=== PATIENT | male | born 1940 | race Caucasian/White ===

== ENCOUNTER 2017-03-08 14:20 | Inpatient (IN) | payer MEDICARE, BC ==
[2017-03-06 21:48] LABS: ASCORBIC ACID (UR NOT ORDER) NEG (NEG); BILIRUBIN, URINE NEGATIVE (NEG); KETONE, URINE NEGATIVE (NEG)
--- NOTE | ~2017-03-08 | HP ---
History And Physical [place] [address] [place]. [address] NAME: CLAU SOARES : 38 STATUS : ADM Edelmira PAT#: [id number] AGE: 76 ADM/REG DATE : 03/08/17 MR#: [id number] REPORT SERV DATE: 03/09/17 DICTATED BY: BENTON JUAN DATE: 03/09/17 REPORT STATUS : Draft TRANSCRIBED BY: MODL DATE: 03/09/17 DATE OF ADMISSION: 03/08/2017 CHIEF COMPLAINT: Altered mental status and weakness. HISTORY OF PRESENT ILLNESS: This is a 76-year-old male, who presents to the emergency room at [facility] with the above-mentioned complaint. History is obtained from the patient and reviewing data available on the [facility] system as well. According to the patient, he had woken up this morning feeling as usual, but a short while later, became a little confused and disoriented. His who was with him waited awhile, but when there was no improvement in his status, she called EMS and the patient was brought to the emergency room here. During this time, she had also noticed that he had some slurred speech. The patient did not know where he was or who he was. In the emergency room, initial workup revealed he had a urinary tract infection, although his dysarthria had resolved by the time he got here. Hospitalist Service is asked to admit him for further evaluation and treatment. At the time of my evaluation, he denied any chest pain or palpitations. He had no orthopnea. He did not have any unusual cough or hemoptysis in the recent past, did not have any night sweats or weight loss. No history of loss of consciousness. No history of fevers, chills, nausea, vomiting, diarrhea, hematemesis, hematochezia, or hematuria in the recent past. No other history of recent travel or exposures other than those mentioned above. PAST MEDICAL HISTORY: Significant for history of spinal stenosis, history of DVT in the past. He also has chronic kidney disease stage 3, essential tremor, and obstructive sleep apnea, noncompliant with therapy. SOCIAL HISTORY: He does not smoke, drink, or use recreational drugs. FAMILY HISTORY: Noncontributory. MEDICATIONS AT HOME: Reviewed by me in the chart today and reordered by me. REVIEW OF SYSTEMS: As in history of present illness. All other systems were reviewed in detail and are quite unremarkable. PHYSICAL EXAMINATION: GENERAL: This is a pleasant 76-year-old, who is alert, awake, oriented to time, place, and person at the time of my evaluation. HEENT: His head was atraumatic, normocephalic. He is alert, awake, oriented to time, place, and person. Pupils are equal, reacting to light and accommodating. External ocular muscles History And Physical [address] [address] NAME: CLAU SOARES : 38 STATUS : ADM Edelmira PAT#: [id number] AGE: 76 ADM/REG DATE : 03/08/17 MR#: [id number] REPORT SERV DATE: 03/09/17 DICTATED BY: BENTON JUAN DATE: 03/09/17 REPORT STATUS : Draft TRANSCRIBED BY: DIPESH DATE: 03/09/17 are intact. Membranes are moist and pink. Sclerae are nonicteric. NECK: Supple with no jugular venous distention, lymphadenopathy, or thyromegaly. LUNGS: Clear to auscultation with no wheezes, rubs, or crackles. HEART: Sounds were regular with no murmurs, rubs, or gallops. ABDOMEN: Soft and nontender. Bowel sounds are present. EXTREMITIES: Showed bilateral pitting lower extremity edema. Otherwise without any cyanosis or clubbing. NEUROLOGIC: Grossly intact. No focal sensory or motor deficits at the time of my evaluation. Gait was not examined. VITAL SIGNS: His temperature was 98.0, pulse 81, respirations 18 a minute, blood pressure was 134/59, and oxygen saturations were 96%, breathing 2 L of oxygen via nasal cannula. LABORATORY DATA: Reviewed on the [facility] system showed sodium of 141, potassium 3.6, chloride 99, CO2 of 34, BUN was 30 with a creatinine of 1.45 today. Blood glucose was 107. Troponin was 0.02 today. CBC showed white blood cell count of 7600, hemoglobin 12.4, hematocrit 38.7, and platelet count was 239,000. Urinalysis showed moderate leukocyte esterase, nitrite was positive. There were 6 wbc's. Films of the CT scan of his brain and chest x-ray were reviewed by me on the PACS today and interpreted by me. Per my interpretation, there is no intracranial abnormality. Chest x-ray did not reveal any acute infiltrates or effusions. A 12-lead EKG done in the emergency room was reviewed and interpreted by me. There is normal sinus rhythm at a rate of [address] elevations. IMPRESSION: 1. Generalized weakness. 2. Urinary tract infection. 3. Dysarthria. 4. Transient ischemic attack. 5. Altered mental status. 6. Chronic kidney disease stage 3. 7. Obstructive sleep apnea, noncompliant with therapy. PLAN: We will admit Mr. Soares to the Hospitalist Service with telemetry for a 24-hour observation period. We will follow non-tPA stroke orders. Consult Neurology to see him in the morning. Meanwhile, get an MRI of the brain with MRA. Get an echocardiogram as well. He is on Eliquis, which we will continue and monitor closely. For his urinary tract infection, we will obtain cultures and start him on empiric IV antibiotics. I have discussed the above plans with the patient. His questions were answered and he is agreeable to the above recommendations. Hospitalist Service will be following him during his stay here. MR/DIPESH Benton Juan M.D. History And Physical [address] [address] NAME: CLAU SOARES : 38 STATUS : ADM [place]ira PAT#: [id number] AGE: 76 ADM/REG DATE : 03/08/17 MR#: [id number] REPORT SERV DATE: 03/09/17 DICTATED BY: BENTON JUAN DATE: 03/09/17 REPORT STATUS : Draft TRANSCRIBED BY: MODL DATE: 03/09/17 / [id number] CC: Irineo Perry Jr, MD
--- NOTE | ~2017-03-08 | EEG ---
Electroencephalogram [facility] [address] [place]. [address] NAME: CLAU SOARES : 38 STATUS : ADM IN PAT#: [id number] AGE: 76 ADM/REG DATE : 03/09/17 MR#: [id number] REPORT SERV DATE: 03/09/17 DICTATED BY: DATE: REPORT STATUS : Draft TRANSCRIBED BY: MODL DATE: 03/09/17 CLINICAL INDICATION: Encephalopathy. DESCRIPTION: This EEG was performed using 10/20 electrode placement system. During the EEG study, symmetric background activity was noted with predominant occipital rhythm of roughly 7 to 8 hertz. Photic stimulation was performed with driving response. The patient was noted to have mild generalized slowing seen throughout the EEG evaluation, otherwise hyperventilation was not performed secondary to the patient's underlying medical condition and mental status. During the EEG study, patient achieved drowsy as well as stage I and II sleep with sleep spindles as well as K-complexes. No electrographic seizure was otherwise noted during the EEG study. No focal abnormality or seizure discharge was seen. INTERPRETATION: This EEG study obtained during awake, drowsy, as well as stage I and II sleep may be considered within normal limits. No focal abnormalities, seizure activity, or seizure discharge was otherwise noted. Clinical correlation is recommended. [facility] Nicolas Ortiz MD / [id number] CC: Irineo Perry Jr, MD David Close, M.D.
--- NOTE | ~2017-03-08 | DS ---
Discharge Summary [facility] [address] [facility] [place]. [address] NAME: CLAU SOARES : 38 STATUS : DIS IN PAT#: [id number] AGE: 76 ADM/REG DATE : 03/10/17 MR#: [id number] REPORT SERV DATE: 03/14/17 DICTATED BY: JR. PERRY WILLIAM JOHN DATE: 03/10/17 REPORT STATUS : Draft TRANSCRIBED BY: MODL DATE: 03/10/17 ADMISSION DATE: 03/08/2017 DISCHARGE DATE: 03/10/2017 DISCHARGE DIAGNOSES: 1. Altered mental status. 2. Possible urinary tract infection. 3. Left lower extremity cellulitis. 4. Generalized weakness. 5. Chronic kidney disease. 6. Depression. 7. Obstructive sleep apnea, noncompliant with CPAP. 8. Hypokalemia. 9. Hypertriglyceridemia. OPERATIONS/PROCEDURES AND TREATMENTS: Include: 1. CT of the brain done on 03/08/2017, which showed stable moderate diffuse cerebral involutional changes and mild to moderate deep white matter chronic microvascular ischemic change without acute intracranial pathology. 2. Chest x-ray done on 03/08/2017 which showed no acute cardiopulmonary process. 3. MRI of the brain done on 03/09/2017, which showed no acute stroke or other acute intracranial process. There was stable moderate advanced diffuse cerebral involutional changes and deep white matter chronic microvascular change. 4. Venous Doppler ultrasound of left lower extremity showed no evidence of clot. 5. MRA of the neck and head showed no intervenable lesions. 6. Echocardiogram showed an ejection fraction of 60% with normal left ventricular size and systolic function. There was mild diastolic dysfunction. There was normal right ventricular size and function. No regurgitation or other valvular lesions. 7. Blood cultures x2 were no growth to date. 8. Urine culture showed Klebsiella sensitive to all antibiotics checked. 9. Thyroid function was normal. HIV was negative. DISCHARGE MEDICATIONS: Include: 1. Eliquis 5 mg orally twice a day. 2. Calcitriol 0.25 mg orally daily. 3. Coenzyme Q 200 mg daily. 4. Doxepin 10 mg orally daily. 5. Neurontin 600 mg orally daily. 6. MiraLAX one packet daily. 7. Potassium chloride 40 mEq daily. 8. Pred-Forte 1% one drop in each eye daily. 9. Mysoline 25 mg twice a day. 10.Propranolol 60 mg orally daily. 11.Citrucel one tablet daily. 12.Requip 1 mg daily. 13.Demadex 200 mg orally daily. Discharge Summary [address] [address] NAME: CLAU SOARES : 38 STATUS : DIS IN PAT#: [id number] AGE: 76 ADM/REG DATE : 03/10/17 MR#: [id number] REPORT SERV DATE: 03/14/17 DICTATED BY: JR. PERRY WILLIAM JOHN DATE: 03/10/17 REPORT STATUS : Draft TRANSCRIBED BY: DIPESH DATE: 03/10/17 14.Valtrex 1 g daily. 15.Vascepa 2 g orally twice a day. 16.Metformin 500 mg twice a day. 17.Zoloft 25 mg orally daily. 18.Keflex 500 mg three times a day for seven days. HOSPITAL COURSE: The patient is a 76-year-old male with a recent back surgery and rehabilitation, presented to emergency room on 03/08/2017 with altered mental status. The patient awake in the morning as usual, short while later he became disoriented and confused. They had difficulty awakening him from sleep and the patient was brought to the emergency room. Exam in the emergency room was significant for temperature 98, blood pressure of 134/59, heart rate 81, respiratory rate 18, 96% on 2 L. He was alert awake and oriented. Neuro exam was unremarkable. Laboratory showed 6 white blood cells per high-power field with a white count of 7.6. CT of the brain, chest x-ray, and EKG were as above. The patient was admitted to the Clinical Decision Unit secondary to altered mental status and generalized weakness. Neurology was consulted and recommended an EEG in addition to the MRI, MRA, and echocardiogram. All of the above studies were done of which none were remarkable. EEG was considered to be normal. I discussed with the patient on the final day of hospitalization if he felt depressed, he admitted he does feel severely depressed since his activity is severely limited. We discussed the options and agreed to Zoloft 25 mg daily. The patient has a chronic indwelling Luis catheter. He had 6 white blood cells per high- power field, however, with chronic indwelling Luis, it is questionable whether he was actually has urinary tract infection. In addition, his left leg was warm and red. I initially placed him on Rocephin, checked an ultrasound of the leg, which was negative. We will discharge him on a seven day course of empiric Keflex for potential/probable cellulitis and/or urinary tract infection. The remainder of the patient's health problems were stable. The patient will be discharged home today on 03/10/2017 if okay with Neurology. For discharge exam and laboratory, please see daily progress note. DISCHARGE DIET: Regular. ACTIVITY: As tolerated. He will resume home services and will follow up with Dr. Jam Cullen. This discharge took 40 minutes for patient encounter, coordination of care, and documentation. For discharge exam and laboratory, please see daily progress note. LISBETH/DIPESH Discharge Summary [address] [address] NAME: CLAU SOARES : 38 STATUS : DIS IN PAT#: [id number] AGE: 76 ADM/REG DATE : 03/10/17 MR#: [id number] REPORT SERV DATE: 03/14/17 DICTATED BY: JR. PERRY WILLIAM JOHN DATE: 03/10/17 REPORT STATUS : Draft TRANSCRIBED BY: DIPESH DATE: 03/10/17 Irineo Perry Jr, MD / [id number] CC: Irineo Perry Jr, MD David Close, M.D.
--- NOTE | ~2017-03-08 | CN ---
Consultation Report [facility] [address] [place]. [address] NAME: CLAU SOARES : 38 STATUS : ADM Edelmira PAT#: [id number] AGE: 76 ADM/REG DATE : 03/08/17 MR#: [id number] REPORT SERV DATE: 03/09/17 DICTATED BY: DATE: REPORT STATUS : Draft TRANSCRIBED BY: MODL DATE: 03/09/17 NEUROLOGY CONSULTATION DATE OF CONSULTATION: 03/09/2017 REASON FOR CONSULT: Encephalopathy. HISTORY OF PRESENT ILLNESS: This is a 76-year-old male, who presented to [facility] on 03/08/2017, secondary to family reports, the patient is difficult to arouse. When the patient was aroused at roughly 12-1 p.m., the patient was noted to be belligerent, was noted to have some dysarthria, also no focal weakness was noted. The patient did not report any numbness. The patient appeared to be still very lethargic today, but does not appear to be quite as disoriented or belligerent. The patient does have a history of difficulty arousal at times, but does not appear to be so severe as the episode from 03/08/2017. The patient's family reports the patient does have some baseline memory difficulties, concern for mild dementia, but otherwise no history of seizure and the episode yesterday, the patient does not have any seizure-like activities or jerking. The patient at baseline does have essential tremors. The patient has not had any recent evaluation by neurologist. The patient since the lumbar spine surgery for spinal stenosis in 11/2016, has not been able to ambulate, so was noted to have right lower extremity weakness that appeared to be chronic. Otherwise, the family reports ever since the surgery in 11/2016, the patient states cold, but does not appear to have worsening chills and no fever was reported. No chest pain, shortness of breath, nausea, or vomiting was otherwise noted. The patient was not noted to have significant decreased appetite. The patient does have recent metformin placed since 11/2016, as well as taken off p.o. zinc. The patient otherwise was not noted to have any other changes in medication. PAST MEDICAL HISTORY: Significant for history of lumbar spine stenosis, status post surgery in 11/2016, as well as history of DVTs. The patient also was noted to have chronic kidney disease stage 3, essential tremors, obstructive sleep apnea that was apparently noncompliant with the therapy. The patient also was noted to have a history of dyslipidemia, but is unable to tolerate Lipitor. The patient was also noted to have diabetes and was placed on metformin in 11/2016. REVIEW OF SYSTEMS: Negative except for those mentioned in the HPI. SOCIAL HISTORY: Denies tobacco, alcohol, or recreational drug usage. ALLERGIES: THE PATIENT WAS NOTED TO HAVE ALLERGY TO LIPITOR, WELCHOL, WELL ZETIA. HOME MEDICATIONS: Consist of Eliquis, calcitriol, coenzyme Q10, doxepin, Neurontin, glucosamine, Vascepa, metformin, Citrucel, MiraLAX, potassium, prednisolone ophthalmic drop, primidone, Inderal, Requip, torsemide, Valtrex, as well as vitamins. Consultation Report [address] [place]. [address] NAME: CLAU SOARES : 38 STATUS : ADM Ed[place]ira PAT#: [id number] AGE: 76 ADM/REG DATE : 03/08/17 MR#: [id number] REPORT SERV DATE: 03/09/17 DICTATED BY: DATE: REPORT STATUS : Draft TRANSCRIBED BY: MODL DATE: 03/09/17 PHYSICAL EXAMINATION: VITAL SIGNS: At the time of evaluation, the patient was noted to have overnight vital signs with T-max of 98.8, heart rates of 78-81, respirations of 16-18, and blood pressure of 134- 178/59-77. GENERAL: The patient is well developed, well nourished, in no acute distress. CARDIOVASCULAR: Regular rate and rhythm. No carotid bruits were otherwise auscultated. PULMONARY: Clear to auscultation bilaterally. NEUROLOGICAL EXAMINATION: Patient was noted to be lethargic, although easily arousable with verbal stimulation. The patient was noted to have mild difficulties maintaining arousal without stimulation, but once aroused, the patient is noted to be alert and oriented to person, place, year, as well as month. The patient is able to follow simple and two-step commands. No clear dysarthria was otherwise noted. No aphasia was noted. The patient was noted to have decreased attention span at the time of evaluation with difficulties to registration and recall. Cranial nerves II through XII, pupils equal, round, and reactive to light. Extraocular eye movement was noted to be intact with intact blink to threat response, was noted to have symmetrical facial expression. Midline tongue. Normal palatal movement. Reports symmetrical facial sensation. Mild decreased hearing in bilateral ears. The patient was noted to have 5/5 right upper extremity strength and 4/5, left upper extremity strength at the time of evaluation. Reports symmetrical sensation bilaterally. The patient was noted to have 1/5 right lower extremity strength which according to the family has been stable. The patient was noted to have 3 to 4-/5 left lower extremity strength at the time of evaluation, was noted to have decreased sensation in bilateral lower extremities at the time of evaluation with the family reports the patient has had longstanding neuropathy. Patient was also noted to have bilateral lower extremities edema as well as discoloration due to venous stasis. The patient was noted to have normal finger- to-nose examination without ataxia. No clear resting tremor was otherwise observed. Deep tendon reflex was noted to be 1+ in bilateral upper extremities and bilateral lower extremities. Downgoing toes and bilateral plantar reflexes. Gait was not evaluated as the patient was noted to be nonambulatory since the recent surgery in 11/2016. LABORATORY STUDY: Demonstrated white blood cell count of 7.2, hemoglobin of 10.7, hematocrit of 33.8, and platelet count of 220. INR of 1.3. Chemistry panel: Sodium 143, potassium 3.2, chloride 100, bicarb of 31, BUN of 30, creatinine 1.44. Glucose of 133, calcium of 9.5, magnesium 1.9. Serum cholesterol 213, HDL of 29, LDL of 184, triglyceride of 171. Hemoglobin A1c of 6.5. Urinalysis demonstrated moderate leukocyte esterase, positive nitrites. CT scan of the brain otherwise demonstrated generalized atrophy. No acute process was seen. IMPRESSION: Encephalopathy, likely secondary to urinary tract infection with baseline dementia per family members. We will repeat urinalysis with culture and sensitivities. We will defer to hospitalist for urinary tract infection therapy. Meanwhile, we will obtain MRI of the brain, which is pending as well as electroencephalogram and laboratory study. Consultation Report [facility] [address] [place]. [address] NAME: CLAU SOARES : 38 STATUS : ADM Edelmira PAT#: [id number] AGE: 76 ADM/REG DATE : 03/08/17 MR#: [id number] REPORT SERV DATE: 03/09/17 DICTATED BY: DATE: REPORT STATUS : Draft TRANSCRIBED BY: MODL DATE: 03/09/17 RECOMMENDATIONS: 1. MRI of the brain without contrast pending. 2. Urinalysis, cultures, and sensitivity. 3. EEG. 4. Pro calcitonin. Ammonia, vitamin B12, folate, TSH, free T4, thiamine, RPR and HIV with morning labs. 5. Hospitalist for UTI therapy. 6. Unable to provide patient's status secondary to patient's allergy. [facility] Nicolas Ortiz MD / [id number] CC: Irineo Perry Jr, MD David Close, M.D.
[~2017-03-08 14:20] MED LIST: AMB10 PO; AMB5 PO; AMOXIL500C PO; ANTIBIOTIC EYE; BETA CAROTENE PO; CELEBREX2 PO; CITRUCELSF; CITRUCELSF PO; CO Q-10100 MG PO; CO Q-10200 MG PO; COUMADIN10 MG PO; COUMADIN3 MG; COUMADIN3 MG PO; COUMADIN6 MG PO; DEMA100 PO; DEMA20 PO; DEPO-TESTOS200 MG/M1 IM; DOX10 PO; ELIQUIS 5 MG TAB5 MG PO; GLUCCHONDR PO; HYTRIN10 MG PO; ILA60 PO; INDE60 PO; INDE80LA PO; KLOR-CON M2020 MEQ PO; LIVALO2 MG; LOVAZA1 GM PO; MICRO-K10 MEQ PO; MIRALAXPKT PO; MYRBETRIQ25 MG PO; NEUR600 PO; NIASPAN500 PO; NORCO1 TA2 PO; OSTEO BI-FLEX1 EACH PO; OSTEO BIFLEX; OXYTROL 3.3.9 MG/24 TOP; PRAVAC PO; PREDFORTE OPH; PRIM50B PO; PRIN20 PO; PROMEGA PO; PROSCAR5 PO; REFRESH; REFRESH1 % OP; REQUIP1 PO; ROCALTROL 0.0.25 MCG OR; ROCALTROL 0.0.25 MCG PO; Requip PO; SINEQUAN PO; SOYA LECITHN1200 MG OR; SOYA LECITHN1200 MG PO; SYSTANE OP; T PO; TRICOR48 PO; TRIPLE LECITHIN PO; VALTREX1 GM PO; VASCEPA1 GM PO; VITAMIN B-121000 MC1 SL; WELCHOL625 MG OR; XARELTO20 MG PO; ZINC PO; [UNRECOGNIZED DRUG - OTHER]; [UNRECOGNIZED DRUG - OTHER]; [UNRECOGNIZED DRUG - OTHER]; [UNRECOGNIZED DRUG - OTHER]; [UNRECOGNIZED DRUG - OTHER] PO
[2017-03-08 15:54] LABS: BASOPHILS 0.3 %; BASOPHILS ABSOLUTE 0.02 10/3/uL (0.0-0.16); EOSINOPHILS 1.6 %; EOSINOPHILS ABSOLUTE 0.12 10/3/uL (0.0-0.53); ER CBC TAT 0 Hrs 03 Mins; IMMATURE GRANULOCYTES 0.4 %; IMMATURE GRANULOCYTES ABSOLUTE 0.03 10/3/uL (0.0-0.11); LYMPHOCYTES 34.3 %; LYMPHOCYTES ABSOLUTE 2.62 10/3/uL (0.67-4.30); MEAN CORPUSCULAR VOLUME 84.1 fL (80-100); MEAN PLATELET VOLUME 9.2 fL (9.2-13.0); MONOCYTES ABSOLUTE 0.46 10/3/uL (0.21-1.20); NEUTROPHILS 57.4 %; NEUTROPHILS ABSOLUTE 4.38 10/3/uL (2.02-8.40); RBC DISTRIBUTION WIDTH 15.3 % (12.0-16.0); WHITE BLOOD CELLS 7.6 10/3/uL (4.5-10.5)
[2017-03-08 15:55] LABS: HEMATOCRIT 38.7 % (40.0-51.0); HEMOGLOBIN 12.4 g/dL (13.6-17.8); MANUAL DIFF NO %; PLATELET COUNT 239 10/3/uL (150-400)
[2017-03-08 16:02] LABS: INTERNATIONAL NORMAL RATI 1.2 UNITS (-); PARTIAL THROMBO TIME 29.3 SEC (22.5-37.2); PROTIME (NOT ORD) 15.3 SEC (12.0-14.5)
[2017-03-08 16:12] LABS: ALKALINE PHOSPHATASE 114 U/L (45-117); BUN (BLOOD UREA NITROGEN) 30 MG/DL (6-23); CALCIUM, SERUM 10.4 MG/DL (8.5-10.4); CHEST PAIN PROFILE TAT 0 Hrs 21 Mins; CHLORIDE, SERUM 99 MMOL/L (96-112); CO2 (CARBON DIOXIDE) 34 MMOL/L (24-34); CREATININE 1.45 MG/DL (0.70-1.30); DIRECT BILIRUBIN < 0.1 MG/DL (0.0-0.4); GFR AFRICAN AMERICAN 53 ML/MIN (>=60); GFR NON AFRICAN AMERICAN 46 ML/MIN (>=60); GLUCOSE, SERUM 107 MG/DL (60-99); INDIRECT BILIRUBIN(NOT ORDER) 0.2 MG/DL (0.1-0.9); POTASSIUM, SERUM 3.6 MMOL/L (3.5-5.3); SGOT(AST) 25 U/L (5-40); SGPT(ALT) 32 U/L (5-65); SODIUM, SERUM 141 MMOL/L (135-148); TOTAL BILIRUBIN 0.3 MG/DL (0-1.2); TOTAL PROTEIN 7.7 G/DL (6.0-8.5); TROPONIN I <0.02 NG/ML (<0.05)
[2017-03-08] MEDS ORDERED: GLUCPH PO (16:22)
[2017-03-08] MEDS ORDERED: TRIPLE LECITHIN PO (16:24)
[2017-03-08] MEDS ORDERED: BETA CAROTENE PO (16:24)
[2017-03-08] MEDS ORDERED: CITRUCEL500 MG PO (16:25)
[2017-03-08] MEDS ORDERED: MIRALAX POWDER1 PKT PO (16:28)
[2017-03-08 16:36] LABS: ASCORBIC ACID (UR NOT ORDER) NEG (NEG); BILIRUBIN, URINE NEGATIVE (NEG); ER URINALYSIS TAT 0 Hrs 14 Mins; KETONE, URINE NEGATIVE (NEG); LEUKOCYTE ESTERASE(NOT OR MOD (NEG); NITRITE (URINE) POS (NEG); WBC (NOT ORDERED) (RFLEX) 6 (0-5)
[2017-03-09 04:04] LABS: BASOPHILS 0.4 %; BASOPHILS ABSOLUTE 0.03 10/3/uL (0.0-0.16); EOSINOPHILS 1.7 %; EOSINOPHILS ABSOLUTE 0.12 10/3/uL (0.0-0.53); HEMOGLOBIN 10.7 g/dL (13.6-17.8); IMMATURE GRANULOCYTES 0.3 %; IMMATURE GRANULOCYTES ABSOLUTE 0.02 10/3/uL (0.0-0.11); LYMPHOCYTES 41.1 %; LYMPHOCYTES ABSOLUTE 2.95 10/3/uL (0.67-4.30); MEAN CORPUS HGB CONC 31.7 g/dL (32.0-36.0); MEAN CORPUSCULAR HEMOGLOB 26.4 pg (26.0-34.0); MEAN CORPUSCULAR VOLUME 83.3 fL (80-100); MEAN PLATELET VOLUME 9.4 fL (9.2-13.0); MONOCYTES 5.3 %; MONOCYTES ABSOLUTE 0.38 10/3/uL (0.21-1.20); NEUTROPHILS 51.2 %; NEUTROPHILS ABSOLUTE 3.68 10/3/uL (2.02-8.40); PLATELET COUNT 220 10/3/uL (150-400); RBC DISTRIBUTION WIDTH 15.5 % (12.0-16.0); RED CELL COUNT 4.06 10/6/uL (4.7-6.1); WHITE BLOOD CELLS 7.2 10/3/uL (4.5-10.5)
[2017-03-09 04:05] LABS: HEMATOCRIT 33.8 % (40.0-51.0); MANUAL DIFF NO %
[2017-03-09 04:12] LABS: INTERNATIONAL NORMAL RATI 1.3 UNITS (-); PARTIAL THROMBO TIME 29.2 SEC (22.5-37.2); PROTIME (NOT ORD) 15.6 SEC (12.0-14.5)
[2017-03-09 04:24] LABS: BUN (BLOOD UREA NITROGEN) 30 MG/DL (6-23); CALCIUM, SERUM 9.5 MG/DL (8.5-10.4); CHLORIDE, SERUM 100 MMOL/L (96-112); CHOL/HDL RATIO(NOT ORDER) 7.3 (0-5); CHOLESTEROL 213 MG/DL (< 200); CO2 (CARBON DIOXIDE) 31 MMOL/L (24-34); CPK (IF ELEVATED MB BANDS) 28 U/L (0-200); CREATININE 1.44 MG/DL (0.70-1.30); GFR AFRICAN AMERICAN 54 ML/MIN (>=60); GFR NON AFRICAN AMERICAN 46 ML/MIN (>=60); HDL CHOLESTEROL 29 MG/DL (> 39); NON-HDL CHOLESTEROL 184 MG/DL (< 160); PHOSPHORUS, SERUM 4.6 MG/DL (2.5-4.5); POTASSIUM, SERUM 3.2 MMOL/L (3.5-5.3); SODIUM, SERUM 143 MMOL/L (135-148); TRIGLYCERIDE 471 MG/DL (< 150); TROPONIN I <0.02 NG/ML (<0.05)
[2017-03-09 04:27] LABS: GLUCOSE, SERUM 133 MG/DL (60-99)
[2017-03-09 10:25] LABS: TROPONIN I <0.02 NG/ML (<0.05)
[2017-03-09 10:26] LABS: CK-MB < 0.5 NG/ML; CPK 27 U/L (0-200)
[2017-03-09 11:50] LABS: ASCORBIC ACID (UR NOT ORDER) NEG (NEG); BILIRUBIN, URINE NEGATIVE (NEG); KETONE, URINE NEGATIVE (NEG); LEUKOCYTE ESTERASE(NOT OR MOD (NEG); WBC (NOT ORDERED) (RFLEX) 18 (0-5)
[2017-03-09 19:20] LABS: CPK 32 U/L (0-200); TROPONIN I <0.02 NG/ML (<0.05)
[2017-03-09 19:22] LABS: CK-MB < 0.5 NG/ML
[2017-03-10 03:00] LABS: CPK 31 U/L (0-200); TROPONIN I <0.02 NG/ML (<0.05)
[2017-03-10 03:02] LABS: CK-MB < 0.5 NG/ML
[2017-03-10 05:08] LABS: HEMATOCRIT 32.9 % (40.0-51.0); HEMOGLOBIN 10.6 g/dL (13.6-17.8); MEAN CORPUS HGB CONC 32.2 g/dL (32.0-36.0); MEAN CORPUSCULAR HEMOGLOB 26.6 pg (26.0-34.0); MEAN CORPUSCULAR VOLUME 82.7 fL (80-100); MEAN PLATELET VOLUME 9.1 fL (9.2-13.0); PLATELET COUNT 223 10/3/uL (150-400); RBC DISTRIBUTION WIDTH 15.4 % (12.0-16.0); RED CELL COUNT 3.98 10/6/uL (4.7-6.1); WHITE BLOOD CELLS 7.2 10/3/uL (4.5-10.5)
[2017-03-10 05:11] LABS: MANUAL DIFF YES %
[2017-03-10 05:52] LABS: BUN (BLOOD UREA NITROGEN) 32 MG/DL (6-23); CALCIUM, SERUM 9.4 MG/DL (8.5-10.4); CHLORIDE, SERUM 100 MMOL/L (96-112); CO2 (CARBON DIOXIDE) 33 MMOL/L (24-34); CREATININE 1.57 MG/DL (0.70-1.30); FREE T4 1.11 NG/DL (0.76-1.46); GFR AFRICAN AMERICAN 48 ML/MIN (>=60); GFR NON AFRICAN AMERICAN 42 ML/MIN (>=60); GLUCOSE, SERUM 147 MG/DL (60-99); POTASSIUM, SERUM 3.6 MMOL/L (3.5-5.3); SODIUM, SERUM 142 MMOL/L (135-148)
[2017-03-10 05:57] LABS: FOLATE 10.4 NG/ML (>5.2)
[2017-03-10 06:32] LABS: BAND NEUTROPHILS 1 %; LYMPHOCYTES 29 %; LYMPHOCYTES ABSOLUTE (CALC) 2.09 10/3/uL (0.67-4.30); MONOCYTES 6 %; MONOCYTES ABSOLUTE (CALC) 0.43 10/3/uL (0.21-1.20); NEUTROPHILS ABSOLUTE (CALC) 4.68 10/3/uL (2.02-8.40); PLATELET ESTIMATE ADQ (ADEQUATE); RBC MORPHOLOGY NORM (NORMAL); SEGMENTED NEUTROPHIL (0) 64 %; TOTAL NUCLEATED CELLS 100
[2017-03-10 06:53] LABS: PROCALCITONIN 0.16 ng/mL (<0.5)
[2017-03-10] MEDS ORDERED: K500 PO (12:14)
[2017-03-10] MEDS ORDERED: ZOLOFT25 MG PO (12:15)
== END 2017-03-10 15:58 | disposition home or self-care (01) | DRG 689 ==
LOC: ER 14:20 → CDU1 21:04 → CDU2 22:10 → 1SO 03-10 07:48
PROVIDERS: Emergency Medicine; Family Medicine; Internal Medicine; Psychiatry & Neurology Neurology
DX: N39.0 Urinary tract infection, site not specified (principal); G93.41 Metabolic encephalopathy; L03.116 Cellulitis of left lower limb; F03.90 Unspecified dementia, unspecified severity, without behavioral disturbance, psychotic disturbance, mood disturbance, and anxiety; E87.6 Hypokalemia; B96.1 Klebsiella pneumoniae [K. pneumoniae] as the cause of diseases classified elsewhere; N18.3 Chronic kidney disease, stage 3 (moderate); E78.5 Hyperlipidemia, unspecified; I87.8 Other specified disorders of veins; Z66 Do not resuscitate; F32.9 Major depressive disorder, single episode, unspecified; G47.33 Obstructive sleep apnea (adult) (pediatric); Z91.19 Patient's noncompliance with other medical treatment and regimen; Z79.01 Long term (current) use of anticoagulants; Z79.84 Long term (current) use of oral hypoglycemic drugs; Z79.899 Other long term (current) drug therapy; Z86.718 Personal history of other venous thrombosis and embolism; Z88.8 Allergy status to other drugs, medicaments and biological substances
CPT/HCPCS: 70450; 70544; 70548; 70551-52; 71010; 80048; 80061; 80076; 81001; 82140; 82550; 82553; 82607; 82746; 82962; 83036; 83735; 84100; 84145; 84425; 84439; 84443; 84484; 85025; 85610; 85730; 86592; 87040; 87077; 87086; 87186; 87389; 93005; 93306; 93971; 95819; 99285; A9270-GY; A9577